=== PATIENT | male | born 1940 | race Caucasian/White ===

== ENCOUNTER → 2021-09-26 | Outpatient (CLI) | payer OTHER ==
[~2021-09-26] MED LIST: ADULT LOW DOSE81 MG PO; COREG6.25 MG PO; FLECAINIDE ACET50 M2 PO; LIPITOR40 MG PO; PRINIVIL40 MG PO; XARELTO20 MG PO
--- NOTE | ~2021-09-26 | CARD ---
[address] [address] CARDIAC CATH REPORT Name: MADY PRADO Room: [facility].#: [id number] Admission: 09/26/21 Attend Phys: Magdy Casper MD Discharge: Date of : 40 Report #: [id number] THIS REPORT FOR: cc: FAM - No family physician/PCP FAM - No family physician/PCP Magdy Casper MD [facility] ~ DATE OF SERVICE: 09/26/2021 PROCEDURE: DC cardioversion. INDICATION: Persistent atrial fibrillation. DESCRIPTION OF PROCEDURE: After informed consent was obtained, the patient was brought to the cardiac holding area. The patient was given 3 mg of intravenous Versed and 75 mcg of intravenous fentanyl for conscious sedation. Once the patient was adequately sedated, he was cardioverted from atrial fibrillation to normal sinus rhythm with a single biphasic shock of 300 joules. The patient tolerated the procedure well without complication. IMPRESSION: 1. Persistent atrial fibrillation. 2. Successful direct current cardioversion to normal sinus rhythm. By: [id number] Mario Casper MD, FACC /nt
[2021-09-26 10:07] VITALS: BP 166/97
[2021-09-26 10:14] LABS: HEMATOCRIT 41.9 % (42.0-52.0); HEMOGLOBIN 13.8 gm/dL (14.0-18.0); MCH 29.8 pg (26.0-34.0); MCV 90.4 fL (80.0-100.0); MPV 7.4 fl. (7.2-11.1); RBC 4.64 mil/uL (4.50-6.00); RDW-CV 14.8 % (10.5-14.5); WBC 10.4 thou/uL (4.0-11.0)
[2021-09-26 10:20] VITALS: BP 180/90
[2021-09-26 10:22] VITALS: BP 145/75
[2021-09-26 10:23] LABS: CALCIUM 9.1 mg/dL (8.5-10.1); CREATININE 1.3 mg/dL (0.6-1.3); POTASSIUM 4.1 mmol/L (3.5-5.1)
[2021-09-26 10:24] VITALS: BP 136/84
[2021-09-26 10:28] VITALS: BP 144/83
[2021-09-26 10:28] LABS: ALBUMIN 3.6 g/dL (3.4-5.0); TOTAL BILIRUBIN 1.3 mg/dL (<0.1-1.0); TOTAL PROTEIN 7.8 g/dL (6.4-8.2)
[2021-09-26 11:08] VITALS: BP 112/70
== END | disposition home or self-care (01) ==
LOC: M.CL 09:39
PROVIDERS: ATTEND Internal Medicine Cardiovascular Disease
DX: I48.19 Other persistent atrial fibrillation (principal); Z79.899 Other long term (current) drug therapy; Z98.890 Other specified postprocedural states; Z88.0 Allergy status to penicillin